=== PATIENT | female | born 1995 | race Caucasian/White ===

== ENCOUNTER 2017-06-25 10:27 | Outpatient (CLI) | payer MEDICAID ==
[~2017-06-25] VITALS: Ht 160 cm; Wt 64.0 kg
[2017-06-25 10:42] VITALS: BP 106/57
[2017-06-25 11:20] LABS: AMPHETAMINE SCREEN, URINE Negative (Negative); BARBITURATE SCREEN, URINE Negative (Negative); BENZODIAZEPINE SCREEN, URINE Negative (Negative); CANNABINOID SCREEN, URINE Negative (Negative); COCAINE SCREEN, URINE Negative (Negative); METHADONE SCREEN, URINE Negative (Negative); OPIATE SCREEN, URINE Negative (Negative)
[2017-06-25] MEDS ORDERED: PREN1TAB60 PO (11:20)
[2017-06-25] MEDS ORDERED: ACET325T14 PO (11:20)
[2017-06-25 11:35] LABS: MICROSCOPIC INDICATED
== END 2017-06-25 12:59 ==
LOC: LDOP 10:27
PROVIDERS: ATTEND Emergency Medicine
DX: O26.899 Other specified pregnancy related conditions, unspecified trimester (principal); Z3A.00 Weeks of gestation of pregnancy not specified
CPT/HCPCS: 36415; 59025; 80307; 81001; 82731; 87086; 99201; G0463

== ENCOUNTER 2018-01-01 13:04 | Emergency (ER) | payer MEDICAID ==
[~2018-01-01] VITALS: Ht 160 cm; Wt 65.0 kg
[~2018-01-01 13:04] MED LIST: ACET325T14 PO; PREN1TAB60 PO
[2018-01-01 15:04] VITALS: BP 104/74
== END 2018-01-01 15:14 | disposition home or self-care (01) ==
LOC: ED 14:00
DX: K60.1 Chronic anal fissure (principal)
CPT/HCPCS: 99283